=== PATIENT | male | born 1960 | race Caucasian/White ===

== ENCOUNTER → 2016-06-04 | Outpatient (REF) | payer OTHER | LOC: M LAB REF 11:50 | DX: D50.9 Iron deficiency anemia, unspecified (principal) ==

== ENCOUNTER → 2016-06-17 | Outpatient (REF) | payer OTHER ==
[2016-06-17 17:41] LABS: INR 1.06
== END ==
LOC: M LAB REF 16:42
DX: I42.2 Other hypertrophic cardiomyopathy (principal)

== ENCOUNTER → 2016-06-23 | Outpatient (REF) | payer OTHER | LOC: M LAB REF 11:47 | DX: D50.9 Iron deficiency anemia, unspecified (principal) ==

== ENCOUNTER → 2016-07-02 | Outpatient (CLI) | payer BC, OTHER ==
[~2016-07-02] MED LIST: E-Z PAQUE 60% w/v SUSP 355ML BOTTLE As Ordered ONE; E-Z-GAS II EFFERVESCENT PACKET (SODIUM BICARB./CITRIC ACID/SIMETHICONE) As Ordered ONE; E-Z-HD 98% w/w 340GM SUSP BTL As Ordered ONE
--- NOTE | 2016-07-02 17:50 | REP ---
UPPER GI AIR CONTRAST AND SMALL BOWEL FOLLOW-THROUGH: The procedure was performed under the direct supervision of Dr. West. The images were reviewed with Dr. West. The manager wound film shows no organomegaly or pathological masses. There is prior posterior fixation at the L3-4 level. There is a 5 mm left lower pole renal stone identified. Liquid barium and gas producing granules were given in the erect position as well as liquid barium in the prone oblique position in order to perform a double contrast upper GI examination. Additionally liquid barium was given at the end of the examination in order to perform a small bowel follow-through. The oral and pharyngeal stages of deglutition are unremarkable. Esophageal transport is prompt and efficient and there is no esophagitis, stricture, mucosal ring, or hiatal hernia. Gastroesophageal reflux is not demonstrated on this examination. Within the stomach there appears to be retained ingested material which limits evaluation for polyps. However, there is a dominant polyp seen in the antrum which measures 1.1 cm. Other smaller polyps can not be excluded. Consider endoscopy for further evaluation. The duodenal houser are normally outlined. The mucosal folds are smooth and regular. There is no duodenitis, pancreatitis, peptic ulcer disease, or neoplasm. The visualized portion of the proximal small bowel appears normal in course and caliber. The barium column was followed through the small bowel to the level of the terminal ileum. There is delayed small bowel transit time with contrast seen in the colon at the 4 hour and 50 minute arielle. During fluoroscopy gentle palpation shows all loops are freely movable and pliable. There are no fixed or angulated loops. The small bowel mucosal pattern is normal in course and caliber. There is no transition to suggest a partial small bowel obstruction. Spot filming of terminal ileum shows it to be unremarkable. IMPRESSION: 1. In the antrum of the stomach there a dominant nodule measuring 1.1 cm. Other smaller polyps can not be excluded. Consider endoscopy for further evaluation. 2. Delayed small bowel transit time with contrast seen in the colon at the 4 hour and 50 minute arielle. The small bowel is otherwise anatomically unremarkable. 4 minutes and 33 seconds of fluoroscopy time was utilized for this procedure. Reviewed by NATACHA Abbasi 07/03/2016 03:36 PEdited and Signed by Boyd West MD 07/03/2016 04:54 P
== END ==
LOC: M RAD 10:11
DX: D50.9 Iron deficiency anemia, unspecified (principal); K31.7 Polyp of stomach and duodenum

== ENCOUNTER 2016-08-19 10:02 | Emergency (ER) | payer OTHER, BC ==
[~2016-08-19] VITALS: Ht 180.3 cm; Wt 137.9 kg
[2016-08-19] MEDS ORDERED: ASPI81TA85 PO (10:18)
[2016-08-19] MEDS ORDERED: METF500T (10:18)
[2016-08-19] MEDS ORDERED: PRAV40TA2 (10:18)
[2016-08-19] MEDS ORDERED: FURO20TA2 (10:18)
[2016-08-19] MEDS ORDERED: LOSA100T36 (10:18)
[2016-08-19] MEDS ORDERED: MULT1CHW39 PO (10:18)
[2016-08-19] MEDS ORDERED: METO-346 (10:18)
[2016-08-19] MEDS ORDERED: TRUL0.5I (10:18)
[2016-08-19] MEDS ORDERED: DULO1CAP3 (10:18)
[2016-08-19] MEDS ORDERED: OMEP20CA3 (10:18)
[2016-08-19] MEDS ORDERED: TEST200I14 (10:18)
[2016-08-19] MEDS ORDERED: INVO300T (10:18)
[2016-08-19] MEDS ORDERED: FE G325T PO (10:18)
--- NOTE | 2016-08-19 11:16 | REP ---
LEFT KNEE SERIES: Five views left knee performed. There is no acute fracture or dislocation. There is mild joint space narrowing and spurring. There is a joint effusion. IMPRESSION: Degenerative changes. Joint effusion. No fracture or dislocation. Signed by Boyd West MD 08/20/2016 04:41 P
[2016-08-19 11:24] VITALS: BP 142/76
== END 2016-08-19 11:34 | disposition home or self-care (01) ==
LOC: M ED 11:08
DX: S89.92XA Unspecified injury of left lower leg, initial encounter (principal); M25.462 Effusion, left knee; W01.0XXA Fall on same level from slipping, tripping and stumbling without subsequent striking against object, initial encounter; Y92.89 Other specified places as the place of occurrence of the external cause; Y93.89 Activity, other specified; Y99.0 Civilian activity done for income or pay; E11.9 Type 2 diabetes mellitus without complications; E66.9 Obesity, unspecified; Z79.899 Other long term (current) drug therapy; Z79.82 Long term (current) use of aspirin; Z79.84 Long term (current) use of oral hypoglycemic drugs; Z79.4 Long term (current) use of insulin; Z88.8 Allergy status to other drugs, medicaments and biological substances

== ENCOUNTER → 2016-08-21 | Outpatient (REF) | payer OTHER, BC ==
[~2016-08-21] MED LIST changes: +ASPI81TA85 PO; +DULO1CAP3; -E-Z PAQUE 60% w/v SUSP 355ML BOTTLE As Ordered ONE; -E-Z-GAS II EFFERVESCENT PACKET (SODIUM BICARB./CITRIC ACID/SIMETHICONE) As Ordered ONE; -E-Z-HD 98% w/w 340GM SUSP BTL As Ordered ONE; +FE G325T PO; +FURO20TA2; +INVO300T; +LOSA100T36; +METF500T; +METO-346; +MULT1CHW39 PO; +OMEP20CA3; +PRAV40TA2; +TEST200I14; +TRUL0.5I
== END ==
LOC: M LAB REF 10:43
PROVIDERS: ATTEND Nurse Practitioner Adult Health
DX: M25.562 Pain in left knee (principal); R60.0 Localized edema

== ENCOUNTER → 2016-08-25 | Outpatient (REF) | payer OTHER, BC | LOC: M LAB REF 16:53 | PROVIDERS: ATTEND Nurse Practitioner Adult Health | DX: M25.562 Pain in left knee (principal) ==

== ENCOUNTER → 2016-09-04 | Outpatient (REF) | payer OTHER, BC | LOC: M LAB REF 12:16 | PROVIDERS: ATTEND Nurse Practitioner Adult Health | DX: M25.562 Pain in left knee (principal) ==

== ENCOUNTER → 2016-10-02 | Outpatient (REF) | payer OTHER ==
[2016-10-02 15:29] LABS: INR 1.09
== END ==
LOC: M LABDRAW1 14:58
PROVIDERS: ATTEND Physical Medicine & Rehabilitation
DX: Z01.818 Encounter for other preprocedural examination (principal); M48.06 Spinal stenosis, lumbar region

== ENCOUNTER → 2016-11-09 | Outpatient (CLI) | payer BC, OTHER ==
[~2016-11-09] VITALS: Ht 177.8 cm; Wt 136.1 kg
[~2016-11-09] MED LIST changes: -DULO1CAP3; +DULO1CAP3 PO; -FURO20TA2; +FURO20TA2 PO; -INVO300T; +INVO300T PO; +LIDOCAINE 2% INJ 100 MG/5 ML SDV (FOR ANES.) As Ordered ONE; -LOSA100T36; +LOSA100T36 PO; -METF500T; +METF500T13 PO; -METO-346; +METO-346 PO; +MULT1TAB10 PO; +NS 1,000 ML IV ONE; -OMEP20CA3; +OMEP20CA3 PO; -PRAV40TA2; +PRAV40TA2 PO; +PROPOFOL 200 MG/20 ML VIAL As Ordered ONE; -TEST200I14; +TEST200I14 SQ; -TRUL0.5I; +TRUL0.5I SQ
--- NOTE | 2016-11-09 08:02 | ROOR ---
Patient Name: Trever Gauthier Procedure Date: 11/09/2016 7:35 AM Date of : 1960 Age: 56 Room: [facility] Gender: Male Note Status: Finalized Procedure: Upper GI endoscopy Indications: Abnormal UGI series Providers: Nathan Walters MD Referring MD: Josefa Sarah DO Requesting Provider: Medicines: Monitored Anesthesia Care Complications: No immediate complications. Procedure: Pre-Anesthesia Assessment: - The heart rate, respiratory rate, oxygen saturations, blood pressure, adequacy of pulmonary ventilation, and response to care were monitored throughout the procedure. The Endoscope was introduced through the mouth, and advanced to the second part of duodenum. The upper GI endoscopy was accomplished without difficulty. The patient tolerated the procedure well. Findings: The Z-line was regular and was found 45 cm from the incisors. The exam was otherwise without abnormality. No other significant abnormalities were identified in a careful examination of the stomach. The exam of the duodenum was otherwise normal. Impression: - Z-line regular, 45 cm from the incisors. - The examination was otherwise normal. - No specimens collected. Recommendation: - Discharge patient to home. - Follow an antireflux regimen. - Continue present medications. - Return to referring physician. - The findings and recommendations were discussed with the patient's family. Nathan Walters MD Nathan Walters MD 11/09/2016 8:01:54 AM This report has been signed electronically. Number of Addenda: 0 Note Initiated On: 11/09/2016 7:35 AM Estimated Blood Loss: Estimated blood loss: none.
[2016-11-09 08:10] VITALS: BP 145/85
== END | disposition home or self-care (01) ==
LOC: M OPP 06:40
PROVIDERS: ATTEND Internal Medicine Gastroenterology
DX: R93.3 Abnormal findings on diagnostic imaging of other parts of digestive tract (principal); I10 Essential (primary) hypertension; E78.5 Hyperlipidemia, unspecified; I42.9 Cardiomyopathy, unspecified; E11.9 Type 2 diabetes mellitus without complications; R12 Heartburn; M19.90 Unspecified osteoarthritis, unspecified site; M54.9 Dorsalgia, unspecified; M25.60 Stiffness of unspecified joint, not elsewhere classified; R06.83 Snoring; G47.30 Sleep apnea, unspecified; E66.9 Obesity, unspecified; R53.1 Weakness; Z98.1 Arthrodesis status; Z88.8 Allergy status to other drugs, medicaments and biological substances; Z79.82 Long term (current) use of aspirin; Z79.899 Other long term (current) drug therapy; Z80.6 Family history of leukemia; Z80.52 Family history of malignant neoplasm of bladder; Z87.891 Personal history of nicotine dependence

== ENCOUNTER → 2017-01-04 | Outpatient (REF) | payer OTHER ==
[~2017-01-04] MED LIST changes: -LIDOCAINE 2% INJ 100 MG/5 ML SDV (FOR ANES.) As Ordered ONE; -NS 1,000 ML IV ONE; -PROPOFOL 200 MG/20 ML VIAL As Ordered ONE
[2017-01-04 18:42] LABS: PERCENT SATURATION 19.1 % (19.7-50.0)
== END ==
LOC: M LAB REF 16:34
PROVIDERS: ATTEND Nurse Practitioner Adult Health
DX: D50.9 Iron deficiency anemia, unspecified (principal)

== ENCOUNTER → 2018-04-29 | Outpatient (REF) | payer OTHER ==
[~2018-04-29] MED LIST changes: -LOSA100T36 PO; +LOSA100T50 PO
[2018-04-29 17:10] LABS: INR 1.1; PROTHROMBIN TIME 14.3 SECONDS (12.1-14.4)
[2018-04-29 17:11] LABS: PARTIAL THROMBOPLASTIN TIME 31.9 SECONDS (25.4-37.6)
== END ==
LOC: M LABDRAW1 15:43
PROVIDERS: ATTEND Physical Medicine & Rehabilitation
DX: Z79.01 Long term (current) use of anticoagulants (principal)

== ENCOUNTER 2018-09-07 05:47 | Day surgery (SDC) | payer BC, OTHER ==
[~2018-09-07] VITALS: Ht 177.8 cm; Wt 141.6 kg
[~2018-09-07 05:47] MED LIST changes: +DICL1GEL; +ELIQ5TAB PO; +FERR325T16 PO; +LIDO1PAD TOP; +METO25TA4 PO; -MULT1CHW39 PO; +MULT200T7 PO; +MULTCAP PO; +TOUJ1.2I SC; +TYLE650T35 PO
[2018-09-07] MEDS ORDERED: MIDAZOLAM INJ 2 MG/2 ML VIAL (J2250) As Ordered ONE ×2 (06:37→07:05)
[2018-09-07] MEDS ORDERED: fentaNYL 100 MCG/2 ML INJECTION (J3010) As Ordered ONE ×2 (06:37→07:06)
[2018-09-07] MEDS ORDERED: LR 1,000 ML IV SCH ×3 (07:00→11:15)
[2018-09-07] MEDS ORDERED: LIDOCAINE 1% MDV 20ML VIAL SQ PRN (07:00)
[2018-09-07] MEDS ORDERED: EPINEPHrine INJ 1 MG/ML 1ML AMP As Ordered ONE (07:02)
[2018-09-07] MEDS ORDERED: LIDOCAINE 2% INJ 100 MG/5 ML SDV (FOR ANES.) As Ordered ONE (07:05)
[2018-09-07] MEDS ORDERED: ROCURONIUM BROMIDE 50 MG/5 ML VIAL As Ordered ONE (07:05)
[2018-09-07] MEDS ORDERED: PROPOFOL 200 MG/20 ML VIAL As Ordered ONE (07:05)
[2018-09-07] MEDS ORDERED: LIDOCAINE 1% MDV 20ML VIAL As Ordered ONE (07:06)
[2018-09-07] MEDS: fentaNYL 100 MCG/2 ML INJECTION (J3010) IV SCH ×2 (07:10→07:20)
[2018-09-07] MEDS: MIDAZOLAM INJ 2 MG/2 ML VIAL (J2250) IV SCH ×2 (07:10→07:14)
[2018-09-07] MEDS ORDERED: ePHEDrine SULFATE 25 MG/5 ML(5MG/ML) SYRINGE As Ordered ONE (08:10)
[2018-09-07] MEDS ORDERED: PHENYLephrine HCL 500 MCG/5 ML (100MCG/ML) SYRINGE (J2370) As Ordered ONE ×2 (08:11→08:16)
[2018-09-07] MEDS ORDERED: dexameTHASONE 4 MG/ML 1ML VIAL (J1100) As Ordered ONE (08:13)
[2018-09-07] MEDS ORDERED: LIDOCAINE 1% MDV 20ML VIAL ONE (08:21)
[2018-09-07] MEDS ORDERED: EPINEPHrine INJ 1 MG/ML 1ML AMP ONE (08:21)
[2018-09-07] MEDS ORDERED: dexameTHASONE 10 MG/1 ML VIAL PRES.FREE (J1100) ONE (08:21)
[2018-09-07] MEDS ORDERED: ROPIvacaine 0.5% 30 ML INJECTION (J2795 PER 1MG) ONE (08:21)
[2018-09-07] MEDS ORDERED: ONDANSETRON 4MG/2ML VIAL (J2405) As Ordered ONE (08:30)
[2018-09-07] MEDS ORDERED: NEOSTIGMINE 10 MG/10 ML VIAL (J2710) As Ordered ONE (08:30)
[2018-09-07] MEDS ORDERED: GLYCOPYRROLATE INJ 0.2 MG/ML 2 ML VIAL As Ordered ONE (08:30)
[2018-09-07] MEDS ORDERED: MEPERIDINE INJ 25 MG/ML VIAL (J2175) IV PRN (11:15)
[2018-09-07] MEDS ORDERED: fentaNYL 100 MCG/2 ML INJECTION (J3010) IV PRN (11:15)
[2018-09-07] MEDS ORDERED: ONDANSETRON 4MG/2ML VIAL (J2405) IV PRN (11:15)
[2018-09-07] MEDS ORDERED: METOCLOPRAMIDE INJ 10MG/2ML VIAL (J2765) IV PRN (11:15)
[2018-09-07] MEDS ORDERED: PERCOCET 5MG/325MG TAB PO PRN (11:15)
--- NOTE | 2018-09-07 11:28 | RO ---
DATE OF PROCEDURE: 09/07/2018 PREOPERATIVE DIAGNOSIS: Right shoulder impingement syndrome and biceps groove pain. POSTOPERATIVE DIAGNOSIS: Right shoulder impingement syndrome and biceps groove pin. PREOPERATIVE PLANNED PROCEDURE: Right shoulder arthroscopy, debridement, subacromial decompression and subpectoral biceps tenodesis. PROCEDURE PERFORMED: Right shoulder arthroscopy, debridement, subacromial decompression and subpectoral biceps tenodesis. The cyst doctoring SURGEON: Dr. Carl Lynch USER EXPERIENCE ANALYST: Irena Bush ANESTHESIA: General anesthetic plus block. CHAIN MAKER LOOM CONTROL: Dr. Butterfield OPERATIVE PREAMBLE: This 58-year-old man had a long head biceps tear. This was confirmed on MRI. Some the biceps had been scarred into the groove with a longitudinal split tear still visible. We talked about the pros, cons, risks, and benefits of going ahead with right shoulder arthroscopy, subacromial decompression, debridement and subpectoral biceps tenodesis. I reminded him of the risks and benefits in holding. I marked his right shoulder and we went ahead. A block was performed in preoperative holding. OPERATIVE REPORT: The patient was brought to operating theater, placed supine in beach chair position with the spider arm positioner to the right side. General anesthesia was induced. Two grams of IV Ancef was administered. All extremities were padded appropriately. The patient was sat up to approximately a 45 degrees angle. The face wayne positioner was employed. Bolster under the knees was placed as well as a sequential compression stockings (SCDs) on the legs and a bear hugger body warmer. The right upper extremity was prepped and draped in the usual sterile fashion. We performed a preoperative time out to confirm the site and the patient. I began by performing a diagnostic arthroscopy through a posterior viewing portal and anterior working portal. I examined the entire glenohumeral joint. There was a small cartilage defect grade 3/4 on the anterior aspect of the glenoid. I debrided this using a small shaver. There was no obvious undersurface tear to the rotator cuff tendon. The biceps had fallen down anteriorly and I debrided this away. It was definitely not attached to the glenoid side. The superior labrum had a tear which I debrided. I left overall the glenoid intact, but there was definite tearing at the superior labrum from 11:30 to 12:30. This was not falling down, so I left it alone aside from debriding it. The subscapularis appeared normal. There was no upper border fraying with lever push technique. I then inserted the arthroscope into the subacromial space posteriorly. I worked posteriorly as well as then established another lateral working portal. I performed subacromial debridement and there was definitely a moderate amount of bursitis. I then debrided the undersurface of the anterolateral acromion. I used a bur to shave this down to a flat margin. I definitely took off at least 5-6 mm of the anterolateral acromion and ensured that it was flat from lateral viewing portal and posterior viewing portal. I then withdrew the scope. I moved the arm into 90 degrees of abduction using the Chirpme arm wayne arm positioner. I began by making a 3 inch incision near the axilla in longitudinal fashion. I carried this dissection down through skin and subcutaneous tissue. I achieved meticulous hemostasis. I identified the cephalic vein. I protected this throughout the case. I then developed the interval lateral to the conjoined tendon and coracobrachialis and just inferior to the pectoralis major tendon. I worked under there. I identified the biceps tendon. I had to extend the incision to ensure that this was indeed the biceps tendon as it was quite robust and hypertrophied. There were some areas of chronic synovitis and hypertrophy to the tendon. I ensured that this was going up into the groove of the humerus and was up between subscapularis and the pectoralis major insertion. I protected the neurovascular bundle by gentle retraction on the conjoined tendon. I then had to release a number of adhesions going up proximally into the humerus as it was quite scarred into the groove. Eventually, I did get this released. I then prepared the anterior aspect of the humerus by decorticating this in the area of my planned tenodesis procedure. I then marked the site of planned tenodesis in a non-tension position in the subpectoral region. This was approximately 1 cm distal to the pectoralis major insertion. I then whip stitched the graft using the fiber link with a straight needle #2 FiberWire suture. I whip stitched the tendon for a length of 3-cm at the musculotendinous junction. I incised the end of the tendon to freshen that up. I then marked the site of my planned button tenodesis. I used the spade-tipped drill to drill the unicortical hole in the appropriate location. I then inserted the sutures into the button. I then used the slot service specialist to insert the button in unicortical fashion. I used the tension slide technique to tension proximal end of the long head biceps down to the insertion site. I used a Harman needle to pass the stitch back through the tendon and then secured this with a stitch and then tied this down over top of the tendon. It was definitely stable. The wounds were thoroughly irrigated with normal saline. The anterior humeral incision was closed with interrupted subcutaneous #2-0 Vicryl sutures followed by running #3-0 Monocryl. Mastisol was applied to all the incisions. The portals were closed with subcutaneous #3-0 Monocryl. Steri-Strips were applied. 4x8 gauze with ABD and cloth tape was applied. Sling with abduction pillow was applied to the right upper extremity. The patient was awoken up from general anesthetic and transferred off the operating table and taken to the postanesthetic care unit in stable condition. All sponge, needle, and instrument counts were correct. Estimated blood loss was 150 mL. PLAN: The patient is to remain in the sling for the next 2 weeks. Followup in the clinic in 2 weeks time. He will be discharged home according to day surgery criteria when they are comfortable. A prescription should be already faxed into his pharmacy of choice.
[2018-09-07 13:15] VITALS: BP 109/61
--- NOTE | 2018-09-07 13:44 | REP ---
Portable chest x-ray: Single view. History: Postop right shoulder. Findings: A loop recorder is visible overlying the left heart border. There is plate-like atelectasis in the right perihilar region. Right hemidiaphragm is somewhat elevated similar to the prior study. No infiltrate is seen. There is no evidence of pneumothorax or hydrothorax. Impression: Plate-like atelectasis right base. Elevated right hemidiaphragm. Otherwise no acute disease. Electronically Signed by Kel Dang MD 09/07/2018 01:35 P
== END 2018-09-07 13:57 | disposition home or self-care (01) ==
LOC: M SDC 05:47
PROVIDERS: ATTEND Orthopaedic Surgery Sports Medicine
DX: M75.41 Impingement syndrome of right shoulder (principal); M75.21 Bicipital tendinitis, right shoulder; I48.91 Unspecified atrial fibrillation; E11.9 Type 2 diabetes mellitus without complications; G47.30 Sleep apnea, unspecified; I10 Essential (primary) hypertension; E78.5 Hyperlipidemia, unspecified; K21.9 Gastro-esophageal reflux disease without esophagitis; I42.2 Other hypertrophic cardiomyopathy; Z79.01 Long term (current) use of anticoagulants; Z79.899 Other long term (current) drug therapy; Z79.4 Long term (current) use of insulin; Z79.84 Long term (current) use of oral hypoglycemic drugs
CPT/HCPCS: 29826; 29828; 64415; 71045; C1713; J0690; J1100; J2250; J2370; J2405; J2710; J2795; J3010

== ENCOUNTER → 2018-12-20 | Outpatient (REF) | payer OTHER ==
[~2018-12-20] MED LIST changes: -DULO1CAP3 PO; +DULO1CAP6 PO; +OMEP1CAP73 PO; -OMEP20CA3 PO
[2018-12-20 14:06] LABS: PLATELET COUNT, AUTOMATED 213 10^3/uL (150-450)
[2018-12-20 14:14] LABS: INR 1.18; PROTHROMBIN TIME 14.7 SECONDS (11.8-14.0)
[2018-12-20 14:15] LABS: PARTIAL THROMBOPLASTIN TIME 34.9 SECONDS (25.0-38.4)
== END ==
LOC: M LABDRAW1 12:52
PROVIDERS: ATTEND Physician Assistant
DX: Z01.812 Encounter for preprocedural laboratory examination (principal)

== ENCOUNTER → 2019-02-18 | Outpatient (CLI) | payer BC, OTHER ==
[~2019-02-18] MED LIST changes: -OMEP1CAP73 PO; +OMEP20CA4 PO
--- NOTE | 2019-02-19 08:25 | REP ---
LEFT 5TH DIGIT: Four views left 5th digit performed. There is an avulsion fracture at the anterior base of the middle phalanx. There is soft tissue swelling. I see no other evidence of acute fracture, dislocation, or intrinsic bone disease. Electronically Signed by Boyd West MD 02/19/2019 12:25 P
== END ==
LOC: M WUC 16:49
PROVIDERS: ATTEND Physician Assistant
DX: S62.627A Displaced fracture of middle phalanx of left little finger, initial encounter for closed fracture (principal); X58.XXXA Exposure to other specified factors, initial encounter; Y92.9 Unspecified place or not applicable

== ENCOUNTER → 2019-06-09 | Outpatient (REF) | payer OTHER ==
[~2019-06-09] MED LIST changes: +OMEP1CAP73 PO; -OMEP20CA4 PO
[2019-06-09 12:34] LABS: PLATELET COUNT, AUTOMATED 246 10^3/uL (150-450)
[2019-06-09 12:46] LABS: INR 1.22; PROTHROMBIN TIME 15.1 SECONDS (11.8-14.0)
[2019-06-09 12:47] LABS: PARTIAL THROMBOPLASTIN TIME 34.8 SECONDS (25.0-38.4)
== END ==
LOC: M LABDRAW1 11:55
PROVIDERS: ATTEND Physician Assistant
DX: Z01.812 Encounter for preprocedural laboratory examination (principal); M47.27 Other spondylosis with radiculopathy, lumbosacral region

== ENCOUNTER → 2019-10-26 | Outpatient (CLI) | payer OTHER | LOC: M LABSMTC 13:34 | PROVIDERS: ATTEND Physical Medicine & Rehabilitation | DX: Z01.818 Encounter for other preprocedural examination (principal); Z11.59 Encounter for screening for other viral diseases ==

== ENCOUNTER → 2020-01-03 | Outpatient (CLI) | payer OTHER ==
[~2020-01-03] MED LIST changes: +ACET650T61 PO; -ASPI81TA85 PO; +ASPI81TA86 PO; -TYLE650T35 PO
== END ==
LOC: M LABSMTC 13:55
PROVIDERS: ATTEND Physical Medicine & Rehabilitation
DX: Z11.59 Encounter for screening for other viral diseases (principal)

== ENCOUNTER → 2020-02-22 | Outpatient (REF) | payer OTHER ==
[2020-02-22 11:45] LABS: INR 0.99; PROTHROMBIN TIME 13.3 SECONDS (12.5-14.3)
== END ==
LOC: M LAB REF 11:17
PROVIDERS: ATTEND Nurse Practitioner Adult Health
DX: M51.37 Other intervertebral disc degeneration, lumbosacral region (principal)

== ENCOUNTER → 2020-03-27 | Outpatient (CLI) | payer OTHER | LOC: M LABSMTC 10:09 | PROVIDERS: ATTEND Physical Medicine & Rehabilitation | DX: Z01.812 Encounter for preprocedural laboratory examination (principal); Z20.828 Contact with and (suspected) exposure to other viral communicable diseases ==

== ENCOUNTER → 2020-05-30 | Outpatient (CLI) | payer OTHER ==
[2020-05-30 15:50] LABS: BLOOD UREA NITROGEN 15 MG/DL (7-18); CREATININE FOR GFR 0.87 MG/DL (0.70-1.30); GLOMERULAR FILTRATION RATE > 60.0 (>56)
== END ==
LOC: M PLALAB 13:28
PROVIDERS: ATTEND Physician Assistant
DX: M51.37 Other intervertebral disc degeneration, lumbosacral region (principal)

== ENCOUNTER → 2020-08-29 | Outpatient (REF) | payer OTHER ==
[~2020-08-29] MED LIST changes: +FERR324T21 PO; -FERR325T16 PO
[2020-08-29 12:51] LABS: APPEARANCE, URINE CLEAR (CLEAR); BACTERIA, URINE AUTO NEGATIVE (NEGATIVE); BILIRUBIN, URINE AUTO NEGATIVE (NEGATIVE); BLOOD, URINE BLOOD 1+ (NEGATIVE); COLOR, URINE YELLOW (YELLOW); GLUCOSE, URINE (UA) AUTO 3+ mg/dL (NEGATIVE); KETONE, URINE AUTO NEGATIVE (NEGATIVE); LEUKOCYTE ESTERASE, URINE AUTO NEGATIVE (NEGATIVE); NITRITE, URINE AUTO NEGATIVE (NEGATIVE); PROTEIN, URINE AUTO NEGATIVE (NEGATIVE); RBC, URINE AUTO 1 /HPF (0-3); SPECIFIC GRAVITY URINE AUTO 1.018 (1.002-1.035); SQUAMOUS EPITHELIAL CELL UR AU 0 /HPF (0-6); UROBILINOGEN, URINE AUTO 0.2 mg/dL (0.0-2.0); WBC, URINE AUTO 0 /HPF (0-3)
[2020-08-29 12:54] LABS: INR 1.14; PROTHROMBIN TIME 14.9 SECONDS (12.5-14.3)
[2020-08-29 12:55] LABS: PARTIAL THROMBOPLASTIN TIME 33.7 SECONDS (24.2-38.5)
== END ==
LOC: M LAB REF 12:38
PROVIDERS: ATTEND Nurse Practitioner Adult Health
DX: Z01.818 Encounter for other preprocedural examination (principal)

== ENCOUNTER 2021-05-20 11:38 | Emergency (ER) | payer BC, OTHER ==
[~2021-05-20 11:38] MED LIST changes: +LOSA100T45 PO; -LOSA100T50 PO
[2021-05-20 12:34] LABS: BASO % 0.1 % (0.0-1.0); EOS # 0.2 10^3/uL (0.0-0.5); EOS % 3.3 % (0.0-3.0); HEMATOCRIT 44.3 % (42.0-52.0); HEMOGLOBIN 14.7 g/dl (13.5-17.5); LYMPH # 2.2 10^3/uL (1.5-5.0); LYMPH % 29.8 % (24.0-44.0); MEAN CORPUSCULAR HEMOGLOBIN 28.5 pg (27.0-33.0); MEAN CORPUSCULAR HGB CONC 33.2 g/dl (32.0-36.5); MONO # 0.8 10^3/uL (0.0-0.8); MONO % 10.5 % (2.0-8.0); PLATELET COUNT, AUTOMATED 207 10^3/uL (150-450); RED BLOOD COUNT 5.15 10^6/uL (4.30-6.10); WHITE BLOOD COUNT 7.2 10^3/uL (4.0-10.0)
[2021-05-20 12:44] LABS: INR 1.1; PROTHROMBIN TIME 14.6 SECONDS (12.7-14.5)
[2021-05-20 12:52] LABS: BLOOD UREA NITROGEN 16 MG/DL (7-18); CREATININE FOR GFR 0.87 MG/DL (0.70-1.30); GLOMERULAR FILTRATION RATE > 60.0 (>56); GLUCOSE, FASTING 140 MG/DL (70-100); SODIUM LEVEL 141 MEQ/L (136-145)
[2021-05-20 12:53] LABS: CALCIUM LEVEL 9.2 MG/DL (8.5-10.1); CARBON DIOXIDE LEVEL 26 MEQ/L (21-32); CHLORIDE LEVEL 107 MEQ/L (98-107); POTASSIUM SERUM 4.1 MEQ/L (3.5-5.1)
[2021-05-20] MEDS ORDERED: predniSONE 20 MG TAB PO ONE (18:40)
[2021-05-20] MEDS ORDERED: PRED20TA PO (18:46)
[2021-05-20] MEDS ORDERED: PROP15DR12 OD (18:46)
[2021-05-20 19:43] VITALS: BP 135/87
== END 2021-05-20 19:49 | disposition home or self-care (01) ==
LOC: M ED 11:38
DX: G51.0 Bell's palsy (principal); I45.10 Unspecified right bundle-branch block; I51.9 Heart disease, unspecified; E11.9 Type 2 diabetes mellitus without complications; I10 Essential (primary) hypertension; Z87.891 Personal history of nicotine dependence; Z82.49 Family history of ischemic heart disease and other diseases of the circulatory system; Z79.4 Long term (current) use of insulin; Z79.01 Long term (current) use of anticoagulants; Z79.899 Other long term (current) drug therapy; Z88.8 Allergy status to other drugs, medicaments and biological substances
CPT/HCPCS: 70450; 70551; 71045; 80048; 85025; 85610; 85730; 93005; 93041; 94760; 99285; J7512

== ENCOUNTER → 2021-06-05 | Outpatient (REF) | payer BC, OTHER ==
[~2021-06-05] MED LIST changes: +PRED20TA PO; +PROP15DR12 OD
== END ==
LOC: M LAB REF 12:23
PROVIDERS: ATTEND Nurse Practitioner Adult Health
DX: G51.0 Bell's palsy (principal)

== ENCOUNTER → 2021-06-17 | Outpatient (REF) | payer BC, OTHER | LOC: M LAB REF 16:18 | PROVIDERS: ATTEND Nurse Practitioner Adult Health | DX: G51.0 Bell's palsy (principal) ==

== ENCOUNTER → 2021-11-18 | Outpatient (CLI) | payer BC, OTHER ==
[~2021-11-18] MED LIST changes: -DICL1GEL; +DICL3GEL2; +LIDOCAINE 1% MDV 20ML VIAL As Ordered ONE; +methylPREDNISolone SUSP 40MG/ML 1ML VIAL (DEPO MEDROL) As Ordered ONE
== END ==
LOC: M IRPRO 12:55
PROVIDERS: ATTEND Physician Assistant
DX: M75.22 Bicipital tendinitis, left shoulder (principal)
CPT/HCPCS: 20550; 76942; J1030

== ENCOUNTER 2023-04-28 10:11 | Day surgery (SDC) | payer BC, OTHER ==
[~2023-04-28] VITALS: Ht 177.8 cm; Wt 137.4 kg
[~2023-04-28 10:11] MED LIST changes: +CHLO125TA PO; +JARD1TAB3 PO; -LIDOCAINE 1% MDV 20ML VIAL As Ordered ONE; -LOSA100T45 PO; +LOSA100T46 PO; +METO1TAB32 PO; +MULT-90 PO; +NS 1,000 ML IV ONE; +OLME20TA50 PO; +POTA10808 PO; +PRAV80TA2 PO; +SEMA2PEN; +XARE20TA PO; -methylPREDNISolone SUSP 40MG/ML 1ML VIAL (DEPO MEDROL) As Ordered ONE
[2023-04-28] MEDS ORDERED: propofoL 200 MG/20 ML VIAL As Ordered ONE (11:21)
[2023-04-28 11:35] VITALS: TEMP 97.3
[2023-04-28 11:47] VITALS: BP 153/72; O2SAT 95
== END 2023-04-28 12:08 | disposition home or self-care (01) ==
LOC: M OPP 10:11
PROVIDERS: ATTEND Internal Medicine Gastroenterology
DX: Z12.11 Encounter for screening for malignant neoplasm of colon (principal); Z86.010 Personal history of colon polyps; K64.0 First degree hemorrhoids; I48.91 Unspecified atrial fibrillation; E11.9 Type 2 diabetes mellitus without complications; G47.30 Sleep apnea, unspecified; Z99.89 Dependence on other enabling machines and devices; Z79.01 Long term (current) use of anticoagulants; Z79.02 Long term (current) use of antithrombotics/antiplatelets; Z79.1 Long term (current) use of non-steroidal anti-inflammatories (NSAID); Z79.4 Long term (current) use of insulin; Z79.899 Other long term (current) drug therapy; Z88.8 Allergy status to other drugs, medicaments and biological substances

== ENCOUNTER → 2023-08-04 | Outpatient (CLI) | payer BC, OTHER ==
[~2023-08-04] MED LIST changes: -NS 1,000 ML IV ONE
== END ==
LOC: M WUC 08:52
PROVIDERS: ATTEND Nurse Practitioner Family
DX: M25.462 Effusion, left knee (principal)

== ENCOUNTER → 2025-01-03 | Outpatient (CLI) | payer BC ==
[~2025-01-03] MED LIST changes: +DICL3GEL13; -DICL3GEL2; -MULT200T7 PO; +MULT200T9 PO; +POTA10807 PO; -POTA10808 PO; -PRAV40TA2 PO; +PRAV40TA85 PO; -PRAV80TA2 PO; +PRAV80TA75 PO
== END ==
LOC: M WUC 10:28
PROVIDERS: ATTEND Nurse Practitioner Family
DX: G89.29 Other chronic pain (principal); M25.552 Pain in left hip

== ENCOUNTER → 2025-04-09 | Outpatient (REF) | payer OTHER ==
[2025-04-09 15:39] LABS: C REACTIVE PROTEIN QUANTITATIV < 0.50 MG/DL (<1.0)
[2025-04-09 15:40] LABS: RHEUMATOID FACTOR QUANT < 3.5 IU/ML (<14)
== END ==
LOC: M LAB REF 14:00
PROVIDERS: ATTEND Nurse Practitioner Family
DX: M25.50 Pain in unspecified joint (principal); R53.83 Other fatigue